=== PATIENT | male | born 1970 | race Caucasian/White ===

== ENCOUNTER 2020-11-15 21:58 | Emergency (ER) | payer OTHER ==
[~2020-11-15] VITALS: Ht 172.7 cm; Wt 104.5 kg
[2020-11-15 23:04] LABS: BILIRUBIN,URINE NEGATIVE (NEG); CLARITY,URINE CLEAR; COLOR,URINE YELLOW; NITRITE,URINE POSITIVE (NEG); PH,URINE 5.5 (<5.0-8.0); PROTEIN,URINE NEGATIVE (NEG-TRACE); UROBILINOGEN,URINE 0.2 mg/dL (0.2 mg/dL)
[2020-11-15 23:11] LABS: BACTERIA,URINE MANY /HPF (0-FEW)
[2020-11-15 23:12] LABS: RBC,URINE OCC /HPF (0-2); WBC,URINE 20-40 /HPF (0-4)
--- NOTE | 2020-11-15 23:22 | ED.ADGEN ---
Past Medical History Past Medical History: Depression Past Surgical History: No Surgical History Smoking Status: Former Smoker Alcohol Use: None General Adult EDM: Chief Complaint: TESTICULAR PAIN OR INJURY HPI: HPI: Patient is a 50-year-old male who presents to the emergency room complaining of left-sided testicular swelling. This started 3 to 4 days ago. He states is progressively gotten worse and he is now having 7 out of 10 pain. He states that it feels like a pressure aching pain. It is constant. He has noticed that his urine has become bubbly and has a smell to it. He denies any pain with urination. He denies any trauma. He has not tried anything to help with the pain. Review of Systems: Review of Systems: Complete ROS is negative unless otherwise documented in HPI Current Medications: Current Medications Medications (Trade) Dose Ordered Sig/Ramiro Start Time Stop Time Status Last Admin Dose Admin Ceftriaxone Sodium (Rocephin Im) 1 gm 1X ONCE 11/16/20 01:15 11/16/20 01:22 DC Oxycodone/ Acetaminophen (Percocet 5/325) 1 tab 1X ONCE 11/16/20 01:30 11/16/20 01:31 Allergies: Allergies: Allergies Coded Allergies Type Severity Reaction Last Updated Verified Unable to Assess 11/16/20 No Physical Exam: PE: General: Awake, alert, NAD. Well Nourished, well hydrated. Cooperative HEENT: Atraumatic, EOMI, PERRL, airway patent, moist oral mucosa Neck: Supple, trachea midline Respiratory: CTA bilaterally, normal effort, no wheezing/crackles CV: RRR, no murmur, cap refill <2 GI: Soft, nondistended, nontender, no masses : Bilateral testicular erythema with swelling to the left testicle, tenderness to the left testicle and epididymis MSK: No obvious deformities Skin: Warm, dry, intact Neuro: A&O x3, speech NL, sensory and motor grossly intact, no focal deficits Psych: Normal affect, normal mood, not suicidal or homicidal Current Patient Data: Labs: Laboratory Tests Test 11/15/20 22:13 Urine Collection Type Void Urine Color Yellow Urine Clarity Clear Urine pH 5.5 (<5.0-8.0) Urine Specific [place] 1.015 (1.000-1.030) Urine Protein Negative mg/dL (NEG-TRACE) Urine Glucose (UA) Negative mg/dL (NEG) Urine Ketones (Stick) Negative mg/dL (NEG) Urine Blood Trace (NEG) Urine Nitrite Positive (NEG) Urine Bilirubin Negative (NEG) Urine Urobilinogen Dipstick 0.2 mg/dL (0.2 mg/dL) Urine Leukocyte Esterase Moderate (NEG) Urine RBC Occ /HPF (0-2) Urine WBC 20-40 /HPF (0-4) Urine Squamous Epithelial Cells Few /LPF Urine Bacteria Many /HPF (0-FEW) Urine Mucus Slight /LPF Vital Signs: Vital Signs Date Time Temp Pulse Resp B/P (MAP) Pulse Ox O2 Delivery O2 Flow Rate FiO2 11/15/20 22:05 98.6 89 12 128/73 (91) 97 Room Air 98.6 EKG: EKG: [] Heart Score: Risk Factors: Risk Factors: DM, Current or recent (<one month) smoker, HTN, HLP, family history of CAD, obesity. Risk Scores: Score 0 - 3: 2.5% MACE over next 6 weeks - Discharge Home Score 4 - 6: 20.3% MACE over next 6 weeks - Admit for Clinical Observation Score 7 - 10: 72.7% MACE over next 6 weeks - Early Invasive Strategies Radiology/Procedures: Radiology/Procedures: [] Course & Med Decision Making: Course & Med Decision Making Pertinent Labs and Imaging studies reviewed. (See chart for details) Patient is 30-year-old male who presents to the emergency room with testicular swelling. Ultrasound and UA were ordered to evaluate for causes testicular swelling. Differential diagnosis includes torsion, abscess, epididymitis. Ultrasound shows epididymo-orchitis with complex hydrocele. Patient is not febrile and does not have signs of Adis's at this time. He was given Rocephin in the Emergency Room. He will be discharged on levaquin and doxycycline. I have discussed with patients and guards that he needs Urology follow up this week. We have discussed that if swelling gets worse, pain gets worse, antibiotics don't appear to be working he will need to return to the Emergency Room for an emergent Urology consult. Patient's test results and vitals while in the ED were fully reviewed and discussed with the patient. Patient is stable and at this time does not need admission to the hospital. We have discussed strict return precautions and the importance of following up with their Primary Care Physician. Patient stated understanding and was given an opportunity to ask any questions. Patient is in agreement with plan. Dragon Disclaimer: Dragon Disclaimer: This electronic medical record was generated, in whole or in part, using a voice recognition dictation system. Departure Departure Impression: Primary Impression: Epididymo-orchitis without abscess Disposition: HOME SELF CARE/HOMELESS Condition: STABLE Referrals: NO PCP (PCP) Patient Instructions: Epididymitis, Orchitis Additional Instructions: Patient will need to follow-up emergently with urology over the next week. Information of follow-up with urology as below. If swelling gets worse or patient does not improve with antibiotics he needs to return to the emergency room. [facility] [phone] Scripts Tramadol Hcl (TRAMADOL HCL) 50 Mg Tablet 50 MG PO Q6HRS PRN for PAIN, #20 TAB Prov: NOVA MOURA MD 11/16/20 Doxycycline Hyclate (DOXYCYCLINE HYCLATE) 100 Mg Capsule 1 CAP PO BID for 14 Days, #28 CAP Prov: NOVA MOURA MD 11/16/20 Levofloxacin (LEVOFLOXACIN) 500 Mg Tablet 1 TAB PO DAILY, #10 TAB Prov: NOVA MOURA MD 11/16/20 NOVA MOURA MD Nov 15, 2020 23:22
--- NOTE | 2020-11-16 00:25 | RAD ---
US TESTICULAR: 11/15/2020 10:56 PM INDICATION: 50 years old Male. Severe swelling. COMPARISON: None. FINDINGS: Right: Testicle: Normal in echotexture without focal lesion. Size: 5.1 x 3.8 x 2.9 cm. Flow: Normal color Doppler flow pattern. Epididymis: Normal in size and echotexture without focal lesion. Hydrocele: None. Varicocele: None. Left: Testicle: Increased vascularity involving the left testicle as compared to the right. No suspicious t esticular mass Size: 4.8 x 2.6 x 3.4 cm. Flow: Hyperemia is noted involving the left testicle. Epididymis: Enlargement with hyperemia. Hydrocele: Small to moderate complex left hydrocele is identified. Varicocele: None. IMPRESSION: Findings are suggestive of left-sided epididymoorchitis with complex left hydrocele. Pyocele or hemat ocele are considerations. Perfusion is noted the testicles bilaterally at the time of imaging. Electronically signed by: Florence Benavides MD (11/16/2020 12:23 AM) CEE
[2020-11-16] MEDS ORDERED: DOXY100C2 PO (00:53)
[2020-11-16] MEDS ORDERED: LEVO500T8 PO (00:53)
[2020-11-16] MEDS ORDERED: TRAM50TA PO (01:04)
[2020-11-16] MEDS ORDERED: cefTRIAXone IM 1 GM VIAL IM ONE (01:15)
[2020-11-16] MEDS ORDERED: oxyCODONE/APAP 5/325 1 TAB TABLET PO ONE (01:30)
[2020-11-16 02:11] VITALS: BP 129/66
== END 2020-11-16 02:11 | disposition home or self-care (01) ==
LOC: EEVIPCON 21:58 → ER 21:58
DX: N45.3 Epididymo-orchitis (principal); F32.9 Major depressive disorder, single episode, unspecified; Z87.891 Personal history of nicotine dependence
CPT/HCPCS: 76870; 81001; 96372; 99284; J0696